=== PATIENT | female | born 1970 | race Caucasian/White ===

== ENCOUNTER 2022-07-11 15:00 | Outpatient (RCR) | payer BC, SELFPAY | END 2022-08-20 08:45 | disposition home or self-care (01) | LOC: PT.CARL 15:00 | PROVIDERS: Visit Provider Family Medicine | DX: M25.561 Pain in right knee (principal) | CPT/HCPCS: 97010; 97014; 97033; 97110; 97140; 97163; 97164; 97530; G0283 ==

== ENCOUNTER 2025-03-02 13:00 | Outpatient (RCR) | payer MEDICAID, SELFPAY | END 2025-03-02 23:59 | disposition home or self-care (01) | LOC: PT 13:00 | PROVIDERS: Visit Provider Family Medicine | DX: M77.12 Lateral epicondylitis, left elbow (principal) | CPT/HCPCS: 97014; 97035; 97110; 97163; G0283 ==

== ENCOUNTER 2025-03-30 14:00 | Outpatient (RCR) | payer MEDICAID, SELFPAY | END 2025-03-30 23:59 | disposition home or self-care (01) | LOC: PT 14:00 | PROVIDERS: Visit Provider Family Medicine | DX: M77.12 Lateral epicondylitis, left elbow (principal) | CPT/HCPCS: 20560; 97014; 97035; 97110; 97164; 97530; G0283 ==